=== PATIENT | female | born 1940 | race Caucasian/White ===

== ENCOUNTER 2017-01-08 05:54 | Day surgery (SDC) | payer MEDICARE, OTHER ==
[2017-01-03 16:22] LABS: HEMOGLOBIN 12.7 g/dL (12.0-16.0)
[2017-01-03 16:23] LABS: HEMATOCRIT 38.5 % (36.0-48.0)
[2017-01-03 16:36] LABS: BUN (BLOOD UREA NITROGEN) 9 MG/DL (6-23); CALCIUM, SERUM 9.4 MG/DL (8.5-10.4); CHLORIDE, SERUM 103 MMOL/L (96-112); CREATININE 0.83 MG/DL (0.55-1.02); GFR AFRICAN AMERICAN 79 ML/MIN (>=60); GFR NON AFRICAN AMERICAN 68 ML/MIN (>=60); GLUCOSE, SERUM 87 MG/DL (60-99); POTASSIUM, SERUM 4.9 MMOL/L (3.5-5.3); SODIUM, SERUM 141 MMOL/L (135-148)
[2017-01-03 16:37] LABS: CO2 (CARBON DIOXIDE) 31 MMOL/L (24-34)
--- NOTE | ~2017-01-08 | OP ---
Record Of Operation [facility] [address] [place]. [address] NAME: PRADIP FISH : 40 STATUS : [facility]#: [id number] AGE: 76 ADM/REG DATE : 01/08/17 MR#: [id number] REPORT SERV DATE: 01/10/17 DICTATED BY: DEMETRI SHAFFER DATE: 01/10/17 REPORT STATUS : Draft TRANSCRIBED BY: MODL DATE: 01/10/17 DATE OF PROCEDURE: 01/08/2017 ANESTHESIA: General. COMPLICATIONS: None. ESTIMATED BLOOD LOSS: 75 mL. PREOPERATIVE DIAGNOSES: 1. Uterine prolapse. 2. Cystocele. 3. Vaginal vault prolapse. 4. Stress urinary incontinence. POSTOPERATIVE DIAGNOSES: 1. Uterine prolapse. 2. Cystocele. 3. Vaginal vault prolapse. 4. Stress urinary incontinence. OPERATION: DICTATION ENDS HERE DAO/VANE Demetri Shaffer M.D. / [id number] CC: Jodee Atkinson M.D.
--- NOTE | ~2017-01-08 | OP ---
Record Of Operation [facility] [address] [place]. [address] NAME: PRADIP FISH : 40 STATUS : [facility]#: [id number] AGE: 76 ADM/REG DATE : 01/08/17 MR#: [id number] REPORT SERV DATE: 01/10/17 DICTATED BY: DEMETRI SHAFFER DATE: 01/10/17 REPORT STATUS : Draft TRANSCRIBED BY: MODL DATE: 01/10/17 DATE OF PROCEDURE: 01/08/2017 ANESTHESIA: General. COMPLICATIONS: None. ESTIMATED BLOOD LOSS: 75 mL. PREOPERATIVE DIAGNOSES: 1. Uterine prolapse. 2. Vaginal vault prolapse. 3. Cystocele. 4. Stress urinary incontinence. POSTOPERATIVE DIAGNOSES: 1. Uterine prolapse. 2. Vaginal vault prolapse. 3. Cystocele. 4. Stress urinary incontinence. OPERATION: 1. Supracervical laparoscopic assisted vaginal hysterectomy with bilateral salpingo- oophorectomy. 2. Laparoscopic abdominal sacrocolpopexy. 3. Advantage Fit suburethral sling. 4. Anterior repair. 5. Cystoscopy. PROCEDURE IN DETAIL: The patient was taken to the operating room and placed on the operating table in the [facility]. After adequate anesthesia, the patient was prepped and draped in usual sterile fashion. The Hulka uterine manipulator and Johnston were inserted. Next, the 2 cm subumbilical incision was performed, carried down sharply through the fascia. The peritoneal cavity was sharply entered and a blunt tipped trocar was inserted, intraabdominal position was confirmed. Next, 8 mm trocar was inserted in the right and left lower quadrant under direct visualization and 5 mm trocar was inserted in the suprapubic region. At this point, a thorough abdominopelvic survey was performed. The ureters were identified and kept out of harm's way at all times. The infundibulopelvic ligaments were skeletonized, cauterized, and cut with the LigaSure. Next, the round ligaments were cauterized and cut with the LigaSure. Next, the broad ligaments were cauterized and cut with the LigaSure. Next, the uterine arteries were cauterized and cut with the LigaSure. Next, the superior aspect of the cervix was cut across and the uterus, tubes, and ovaries were placed in Endopouch and removed through the umbilical trocar site. At this point, a small hole was noted in the vaginal wall, this was closed with a 2-0 Stratafix suture. At this point, rectangular shaped pieces of Vertessa Lite Mesh were sutured to the anterior and posterior vaginal owen and the cervical stump. This was done with running 2-0 V-Loc sutures. Record Of Operation [facility] [address] [place]. [address] NAME: PRADIP FISH : 40 STATUS : [facility] PAT#: [id number] AGE: 76 ADM/REG DATE : 01/08/17 MR#: [id number] REPORT SERV DATE: 01/10/17 DICTATED BY: DEMETRI SHAFFER DATE: 01/10/17 REPORT STATUS : Draft TRANSCRIBED BY: VANE DATE: 01/10/17 Multiple sutures were used for anterior and then posterior. Both leaves of the mesh were then attached just below the sacral promontory with absorbable tacking device. The pelvis was sterilely irrigated. Hemostasis noted to be good. Peritoneum was then closed over the mesh with a running 2-0 Stratafix suture. Again pelvis was irrigated. Hemostasis noted to be good. Surgicel was placed over the vaginal cuff and mesh for further barrier. At this point, the anterior vaginal wall was sharply and bluntly dissected off underlying anterior fibromuscular tissue. The anterior fibromuscular tissue was plicated with 0 Vicryl suture. Next, using Advantage Fit sling, needles were inserted upward through the retropubic space and the mesh was placed just distal to the urethrovesical junction without any tension. The anterior compartment was irrigated. Hemostasis noted to be good. Excess anterior vaginal wall was excised and reapproximated with running 2-0 Vicryl suture. Cystoscopy was performed. There was bilateral ureteral efflux of Pyridium dye. No damage or sutures to the bladder. Johnston and vaginal pack were placed. Repeat look with laparoscopy was performed. Hemostasis noted to be good. The fascia at the umbilical site was reapproximated with #1 Vicryl suture, skin with 4-0 Monocryl in all areas. The patient tolerated procedure well and was taken to the recovery room in stable condition. CHASE Demetri Shaffer M.D. / [id number] CC: Jodee Atkinson M.D.
[~2017-01-08 05:54] MED LIST: 8 HOUR650 MG PO; ASA5GR PO; ASAB PO; ASABAYER PO; ATEN25 PO; CITRACAL PO; DSS PO; GLUCCHONDR PO; ISORDIL10 PO; LIOR10 PO; MCZ125 PO; METAMUCIL CAN7 OZ PO; MULTIVIT/MIN PO; PLAVIX PO; T3 PO
[2017-01-08 15:15] LABS: HEMATOCRIT 40.5 % (36.0-48.0); HEMOGLOBIN 13.5 g/dL (12.0-16.0); MEAN CORPUS HGB CONC 33.3 g/dL (32.0-36.0); MEAN CORPUSCULAR HEMOGLOB 28.8 pg (26.0-34.0); MEAN CORPUSCULAR VOLUME 86.5 fL (80-100); MEAN PLATELET VOLUME 10.2 fL (9.2-13.0); PLATELET COUNT 188 10/3/uL (150-400); RBC DISTRIBUTION WIDTH 13.8 % (12.0-16.0); RED CELL COUNT 4.68 10/6/uL (4.0-5.6)
[2017-01-08 15:29] LABS: MANUAL DIFF YES %
[2017-01-08 15:34] LABS: BAND NEUTROPHILS 8 %; LYMPHOCYTES 8 %; LYMPHOCYTES ABSOLUTE (CALC) 0.64 10/3/uL (0.67-4.30); MONOCYTES 3 %; MONOCYTES ABSOLUTE (CALC) 0.24 10/3/uL (0.21-1.20); NEUTROPHILS ABSOLUTE (CALC) 7.12 10/3/uL (2.02-8.40); SEGMENTED NEUTROPHIL (0) 81 %; TOTAL NUCLEATED CELLS 100
[2017-01-08 15:35] LABS: PLATELET ESTIMATE ADQ (ADEQUATE)
== END 2017-01-08 17:22 | disposition home or self-care (01) ==
LOC: SDC 05:54
PROVIDERS: Obstetrics & Gynecology Gynecology
PROC: 0JUC0JZ Supplement of Pelvic Region Subcutaneous Tissue and Fascia with Synthetic Substitute, Open Approach (ICD-10-PCS; 2017-01-08)
PROC: 0UT94ZZ Resection of Uterus, Percutaneous Endoscopic Approach (ICD-10-PCS; principal; 2017-01-08 07:15)
PROC: 0UT24ZZ Resection of Bilateral Ovaries, Percutaneous Endoscopic Approach (ICD-10-PCS; 2017-01-08 07:15)
PROC: 0UT74ZZ Resection of Bilateral Fallopian Tubes, Percutaneous Endoscopic Approach (ICD-10-PCS; 2017-01-08 07:15)
PROC: 0USG4ZZ Reposition Vagina, Percutaneous Endoscopic Approach (ICD-10-PCS; 2017-01-08 07:15)
DX: D25.9 Leiomyoma of uterus, unspecified (principal); N81.4 Uterovaginal prolapse, unspecified; N81.10 Cystocele, unspecified; N39.3 Stress incontinence (female) (male); Z86.73 Personal history of transient ischemic attack (TIA), and cerebral infarction without residual deficits; I25.10 Atherosclerotic heart disease of native coronary artery without angina pectoris; I10 Essential (primary) hypertension; K21.9 Gastro-esophageal reflux disease without esophagitis; Z88.8 Allergy status to other drugs, medicaments and biological substances; Z88.5 Allergy status to narcotic agent; Z79.02 Long term (current) use of antithrombotics/antiplatelets; Z79.82 Long term (current) use of aspirin; Z79.899 Other long term (current) drug therapy
CPT/HCPCS: 36415; 80048; 85014; 85018; 85025; 86850; 86900; 86901; 88307; 93005; A9270-GY; C1771; C1781; J0694; J1885; J2270; J2370; J2405; J2550; J2710; J3010